=== PATIENT | female | born 1990 | race Caucasian/White ===

== ENCOUNTER 2018-04-25 13:18 | Outpatient (CLI) | payer MEDICAID ==
[2018-04-25] MEDS ORDERED: MIDAZOLAM 2 MG/2 ML VIAL IVP PRN (14:00)
[2018-04-25] MEDS ORDERED: NALOXONE HCL 0.4 MG/ML INJ IVP PRN (14:00)
[2018-04-25] MEDS ORDERED: FLUMAZENIL 0.5 MG/5 ML MDV IVP PRN (14:00)
[2018-04-25] MEDS ORDERED: NS 1,000 ML IV SCH (14:00)
[2018-04-25] MEDS ORDERED: GADOBUTROL 10 ML VIAL IVP ONE (15:20)
[2018-04-25] MEDS ORDERED: FLUMAZENIL 0.5 MG/5 ML MDV IVP ONE (15:29)
[2018-04-25] MEDS ORDERED: MIDAZOLAM 2 MG/2 ML VIAL ONE (15:29)
[2018-04-25 17:44] VITALS: BP 140/86
== END 2018-04-25 18:00 | disposition home or self-care (01) ==
LOC: FIMAGING 13:18
PROVIDERS: ATTEND Surgery
DX: N64.4 Mastodynia (principal); Z80.3 Family history of malignant neoplasm of breast
CPT/HCPCS: A9585; C8908; J2250

== ENCOUNTER → 2018-06-27 | Outpatient (CLI) | payer MEDICAID | LOC: FIMAGING 13:06 | PROVIDERS: ATTEND Surgery | DX: Z12.89 Encounter for screening for malignant neoplasm of other sites (principal); Z80.3 Family history of malignant neoplasm of breast; Z80.41 Family history of malignant neoplasm of ovary; Z79.890 Hormone replacement therapy ==

== ENCOUNTER 2018-08-12 05:59 | Observation (INO) | payer MEDICAID ==
[2018-08-12] MEDS ORDERED: LR 1,000 ML IV ONE (06:22)
[2018-08-12] MEDS ORDERED: fentaNYL 100 MCG/2 ML INJ ONE ×4 (07:44→12:37)
[2018-08-12] MEDS ORDERED: PROPOFOL 200 MG/20 ML VIAL ONE (07:45)
[2018-08-12] MEDS ORDERED: MIDAZOLAM 2 MG/2 ML VIAL IVP ONE (07:46)
--- NOTE | 2018-08-12 07:47 | PDANEPAE ---
ANE Past Medical History - Cardiovascular History Hx Hypertension: No Hx Arrhythmias: No Hx Chest Pain: No Hx Coronary Artery / Peripheral Vascular Disease: No Hx CHF / Valvular Disease: No Hx Palpitations: No - Pulmonary History Hx COPD: No Hx Asthma/Reactive Airway Disease: Yes Hx Recent Upper Respiratory Infection: No Hx Oxygen in Use at Home: Yes O2 in Use at Home (L/minute): 4 Hx Sleep Apnea: Yes Sleep Apnea Screening Result - Last Documented: Positive Pulmonary History Comment: ASTHMA TRIGGERS, ENVIRONMENTAL TRIGGERS. MIRA DX 2013 ,TRIED TO USE C-PAP UNABLE TO GET ENOUGH OXYGEN SO NOW USES HS OXYGEN - Neurologic History Hx Cerebrovascular Accident: No Hx Seizures: Yes Hx Dementia: No Neurologic History Comment: 2014 ONE TIME NOTHING SINCE - Endocrine History Hx Diabetes: No Endocrine History Comment: ON AND OFF THYROID MEDICATION. NONE FOR PAST 2 YEARS - Renal History Hx Renal Disorders: No - Liver History Hx Hepatic Disorders: No Hepatic History Comment: HEMOCHROMATOSIS. POLYCYTHEMIA - Neurological & Psychiatric Hx Hx Neurological and Psychiatric Disorders: Yes Neurological / Psychiatric History Comment: PTSD, depression, severe anxiety - Cancer History Hx Cancer: No - Congenital Disorder History Hx Congenital Disorders: No - GI History Hx Gastrointestinal Disorders: Yes Gastrointestinal History Comment: ULCER 2011 - Other Health History Other Health History: FAMILY HX OF BREAST CA, AND POSITIVE GENETIC TESTING - Chronic Pain History Chronic Pain: No - Surgical History Prior Surgeries: FAUSTO FOOT REMVL BONE GROWTH. EGD/COLONOSCOPY ANE Review of Systems Review of Systems: - Exercise capacity METS (RN): 4 METS ANE Patient History - Allergies Allergies/Adverse Reactions: ibuprofen Allergy (Severe, Verified 04/25/18 14:07) GI bleed tomato [Tomato] Allergy (Intermediate, Verified 05/25/14 16:23) Abdominal Cramping marijuana Allergy (Verified 12/31/14 16:33) pumpkin Allergy (Severe, Uncoded 05/22/12 15:31) Anaphylaxis spicy food Allergy (Uncoded 05/22/12 15:31) Abdominal Cramping - Home Medications Home Medications: EPINEPHrine [Epipen 0.3 MG (RX)] 0.3 mg IM ONCE PRN 05/25/14 [Last Taken Unknown ] Haloperidol [Haldol 5 MG (*)] 2.5 mg PO HS 04/01/18 [Last Taken 08/11/18] Ondansetron Odt [Zofran Odt 4 mg (*)] 4 mg PO DAILY 04/01/18 [Last Taken ] Ondansetron Odt [Zofran Odt 4 mg (*)] 4 mg PO Q4 PRN 04/01/18 [Last Taken ] Ranitidine HCl [Zantac] 150 mg PO BID 04/01/18 [Last Taken 08/12/18] Testosterone IM [Testosterone 100mg/ml IM inj (*)] 200 mg IM Q14D 04/01/18 [ Last Taken 08/03/18] Escitalopram Oxalate [Lexapro] 10 mg PO DAILY 04/25/18 [Last Taken 08/12/18] Haloperidol [Haldol 5 MG (*)] 1.25 mg PO DAILY 08/03/18 [Last Taken 08/12/18] traZODone [traZODONE 100MG (*)] 200 mg PO HS 08/03/18 [Last Taken 08/11/18] Albuterol Sulfate Hfa BID 08/04/18 [Last Taken 08/11/18] Flovent 110 MCG Hfa MDI (*) 08/12/18 [Last Taken 08/12/18 06:41] Flovent Diskus 08/12/18 [Last Taken 08/12/18 06:41] - NPO status NPO Since - Liquids (Date): 08/12/18 NPO Since - Liquids (Time): 04:45 NPO Since - Solids (Date): 08/11/18 - Smoking Hx Smoking Status: Former smoker - Family Anes Hx Family Hx Anesthesia Complications: NEG ANE Labs/Vital Signs - Vital Signs Blood Pressure: 113/76 Heart Rate: 76 Respiratory Rate: 15 O2 Sat (%): 90 Height: 162.56 cm Weight: 138.346 kg ANE Physical Exam - Airway Neck exam: FROM, decreased ROM Mallampati Score: Class 3 Mouth exam: small mouth opening - Pulmonary Pulmonary: no respiratory distress - Cardiovascular Cardiovascular: regular rate and rhythym - ASA Status ASA Status: III ANE Anesthesia Plan Anesthesia Plan: general endotracheal anesthesia
[2018-08-12] MEDS ORDERED: DEXAMETHASONE 4 MG/ML VIAL ONE (07:57)
[2018-08-12] MEDS ORDERED: ROCURONIUM 50 MG/5 ML VIAL ONE (07:57)
[2018-08-12] MEDS ORDERED: ONDANSETRON 4 MG/2 ML VIAL ONE ×3 (07:57→13:28)
[2018-08-12] MEDS ORDERED: LIDOCAINE 2% 100 MG/5 ML SYR ONE (07:58)
--- NOTE | 2018-08-12 08:29 | PDHPUP ---
History & Physical Update H&P update statement: This history and physical update is based on an assessment of the patient which was completed after admission or registration (within 24 hours), but prior to the surgery/procedure. H&P update: H&P reviewed & patient examined, no change in patient's condition since H&P completed
--- NOTE | 2018-08-12 08:30 | POSTOPPROG ---
Post Op Note Date of Operation: 08/12/18 Surgeon: [employer] Counselor: Wendy Galeano PA-C Anesthesiologist: Dr. Pagan Anesthesia: GET(General Endotracheal) Pre-op Diagnosis: prophylactic bilateral mastectomy Post-op Diagnosis: same Procedure: Bilateral mastectomy with nipple grafting Inf/Abcess present in the surg proc area at time of surgery?: No EBL: 50-100 Complications: no immediate Drains: Edmundo Alicia (x2) Specimen(s): right breast, left breast
[2018-08-12] MEDS ORDERED: BUPIVACAINE/EPI 0.25% 30 ML SDV ONE (09:03)
[2018-08-12] MEDS ORDERED: MINERAL OIL 10 ML VIAL ONE (09:07)
[2018-08-12] MEDS ORDERED: NEOSTIGMINE METHYLSULFATE 10 MG/10 ML MDV ONE (11:11)
[2018-08-12] MEDS ORDERED: GLYCOPYRROLATE 0.2 MG/1 ML VIAL ONE ×2 (11:11)
[2018-08-12] MEDS ORDERED: ALBUTEROL 3 ML DEYVIAL IH PRN (12:23)
[2018-08-12] MEDS ORDERED: NALOXONE HCL 0.4 MG/ML INJ IVP PRN (12:23)
[2018-08-12] MEDS ORDERED: ONDANSETRON 4 MG/2 ML VIAL IVP PRN (12:23)
[2018-08-12] MEDS ORDERED: HYDROmorphONE/DILAUDID 1 MG/ML INJ IVP PRN (12:23)
[2018-08-12] MEDS ORDERED: ACETAMINOPHEN 325 MG TAB PO PRN (12:23)
[2018-08-12] MEDS ORDERED: HYDROCODONE/APAP 5/325 TAB PO PRN (12:23)
--- NOTE | 2018-08-12 12:24 | POSTANESTH ---
Post Anesthetic Evaluation Cardiovascular Status: Similar to Pre-Op Cond Respiratory Status: Similar to Pre-op Cond. Level of Consciousness/Mental Status: Can Participate in Eval, Mildly Sleepy, Arousable Pain Control: Adequate, Prn Tx Ordered Nausea/Vomiting Control: Adequate, Prn Tx Ordered Complications Possibly Related to Anesthesia: None Noted
[2018-08-12] MEDS ORDERED: EPINEPHRINE 0.3 MG IM PRN (12:27)
[2018-08-12] MEDS: ONDANSETRON 4 MG/2 ML VIAL IVP PRN ×2 (12:35→13:30)
[2018-08-12] MEDS: fentaNYL 100 MCG/2 ML INJ IVP PRN ×2 (12:39→14:28)
--- NOTE | 2018-08-12 12:53 | GOP ---
[f rep st] OPERATIVE REPORT DATE OF OPERATION: 08/12/2018 SURGEON: Bello Armas MD BUSINESS REPRESENTATIVE: Wendy Galeano PA-C. ANESTHESIA: General, Dr. Pagan. PREOPERATIVE DIAGNOSIS: Family history of breast cancer, gender dysphoria. POSTOPERATIVE DIAGNOSIS: Family history of breast cancer, gender dysphoria. PROCEDURE PERFORMED: Bilateral simple mastectomy with free nipple grafting. FINDINGS: See below. INDICATIONS: 27-year-old female to male transformation. The patient with a strong history of breast and ovarian cancer. He has opted to undergo bilateral simple mastectomy with free nipple grafting at this time as part of female to male gender transformation, as well as a breast cancer risk reduction. Risks and benefits were explained of bleeding, infection, future breast cancer development, cosmetic deformity, nipple necrosis, skin flap necrosis, as well as others. All questions were entertained. He desires to proceed. A clinic office assistant is standard, necessary, and customary for the safe performance of this procedure. DESCRIPTION OF PROCEDURE: General anesthesia was induced. The breasts were preoperatively marked along the inframammary fold meridian lines as well as the superior border of the dissection. Large elliptical incisions were created around the lower pole of breast envelopes, incorporating the nipple-areolar complexes. The nipples were full-thickness excised prior to the breast incision. These were placed aside for later defatting and grafting. Using electrocautery, skin flaps were created to the level of the clavicle, sternum, inframammary folds, as well as latissimus dorsi muscle laterally. The breast envelopes were peeled from medial to lateral, incorporating the pectoralis major fascia. Excellent skin flaps were noted bilaterally, as was lower pole breast contouring. Satisfactory hemostasis was assured. Local anesthetic was infiltrated along bilateral pec muscles as well as the serratus anterior muscle. The skin was closed in multiple layers over 10 flat Edmundo-Alicia drains followed by placement of Dermabond. The patient was sat upright, adequate nipple locations were chosen slightly lateral to the pre-existing meridian lines. Approximately 2.5 cm circular defects were created and the skin de-epithelialized. The nipples were both defatted. These were secured circumferentially to the dermis with multiple interrupted chromic sutures. Two large bolster sutures were placed at 3 and 6 paired positions. The bolsters were stuck down over Xeroform and oil-soaked gauze. Mepilex dressings were applied over both nipple-areolar complexes. The patient was extubated in the operating room and taken to recovery in good condition. /[id number]/MODL MTDD
[2018-08-12] MEDS: FAMOTIDINE 20 MG TAB PO SCH (20:04)
[2018-08-12] MEDS ORDERED: traZODone 100 MG TAB PO SCH (21:00)
[2018-08-12] MEDS ORDERED: HALOPERIDOL 5 MG TAB PO SCH (21:00)
--- NOTE | 2018-08-13 08:06 | SOAPPROG ---
SOAP Progress Note Assessment/Plan: Assessment:no overnight concerns. pain well controlled. no cp or sob. afebrile p 100-120. comfortable. incis clean. small right chest retained blood in lateral chest wall gutter. SAL dark old blood. incis clean. flaps all pink. doing well. home today. Plan: 08/13/18 08:05 Objective: Vital Signs Temp Pulse Resp BP Pulse Ox 37.0 C 121 H 16 112/87 H 96 08/13/18 04:00 08/13/18 04:00 08/13/18 04:00 08/13/18 04:00 08/13/18 04:00 08/12/18 08/13/18 08/14/18 05:59 05:59 05:59 Intake Total 3280 Output Total 810 Balance 2470 ICD10 Worksheet Patient Problems: Problems Problem Status Onset Headache Acute
[2018-08-13] MEDS ORDERED: ALBUTEROL 60 PUFFS/8 GM MDI IH PRN (08:15)
--- NOTE | 2018-08-13 08:21 | GDS ---
[f rep st] DISCHARGE SUMMARY DATE OF SURGERY: August 13, 2018 REASON FOR ADMISSION: 1. Family history of breast carcinoma. 2. Gender dysmorphism. HOSPITAL COURSE: 27-year-old female to male transformation, admitted for bilateral mastectomies for breast cancer risk reduction as well as for gender transformation. He underwent bilateral simple mas tectomies with free nipple grafting. He had a benign postoperative course other than minor increased right chest wall drainage. This improved with compression bandaging. The patient was discharged ho or on postop day 1 in good condition, tolerating a regular diet with adequate pain control with oral analgesics. He was accompanied by the presence of his 2 sisters who will be helping with his postope rative care. Had prescription for [place] as needed for discomfort. He will be seen on Wednesday for dressing takedown. Drain care instructions were demonstrated with the family. Remaining postoperati ve care instructions were also explained in person. /[id number]/MODL
[2018-08-13] MEDS: FAMOTIDINE 20 MG TAB PO SCH (08:23)
[2018-08-13] MEDS ORDERED: HALOPERIDOL 5 MG TAB PO SCH (09:00)
[2018-08-13] MEDS ORDERED: FLUTICASONE HFA 110 MCG MDI IH SCH (09:00)
[2018-08-13] MEDS ORDERED: ESCITALOPRAM OXALATE 10 MG TAB PO SCH (09:00)
[2018-08-13] MEDS ORDERED: FLUTICASONE PROPIONATE IH SCH (09:00)
[2018-08-13] MEDS ORDERED: ONDANSETRON DISINTEGRATING 4 MG TAB PO SCH (09:00)
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
--- NOTE | 2018-08-13 09:27 | ASDISCHSUM ---
Discharge Information Plan Status:Home with No Needs Medically Cleared to Leave:08/13/2018 Discharge Date:08/13/2018 CM D/C Disposition:Home, Routine, Self-Care ADT D/C Disposition:Home, Routine, Self-Care Projected Discharge Date:08/13/2018 Transportation at D/C:Family Discharge Delay Reason: Follow-Up Date:08/13/2018 Discharge Slot: Final Diagnosis: Placement Information Patient Contact Information Contact Name:NAILA Relationship:Father Address: Work Phone: City:[facility] Alternate Phone: State/[facility] Code:[place] Email: Financial Information Financial Class:Medicaid Primary Plan Desc:[employer] HEALTH [employer] Primary Plan Number:[id number] Secondary Plan Desc: Secondary Plan Number: Assessment Information [facility] CM Progress Note CM Note CM Note Notes: Pt is a 27 yo who is undergoing gender transition. Pt identified as Male and goes by the name Ty. Pt underwent bilateral mastectomy with Dr. Armas yesterday. Pt is getting discharged independently. Has family who is able to stay with pt and help with needs after discharge. RN is going to educate family on how to care for drains. No CM needs identified at this time. Date Signed: 08/13/2018 09:25 AM Electronically Signed By:DAYA Rodgers Intervention Information
[2018-08-13 15:37] VITALS: BP 112/81
[2018-08-17] MEDS ORDERED: TESTOSTERONE IM 100 MG/ML SYRINGE IM SCH (09:00)
== END 2018-08-13 16:45 | disposition home or self-care (01) ==
LOC: F3N 05:59 → F1N 06:50
PROVIDERS: ADMIT Surgery; ATTEND Surgery
PROC: 0HTV0ZZ Resection of Bilateral Breast, Open Approach (ICD-10-PCS; principal; 2018-08-12 09:00)
DX: Z40.01 Encounter for prophylactic removal of breast (principal); Z80.3 Family history of malignant neoplasm of breast; F64.8 Other gender identity disorders; F43.10 Post-traumatic stress disorder, unspecified; E03.9 Hypothyroidism, unspecified; Z81.1 Family history of alcohol abuse and dependence; J45.909 Unspecified asthma, uncomplicated
CPT/HCPCS: 19303; G0378; J1100; J2001; J2250; J2405; J2704; J3010